=== PATIENT | male | born 1970 | race Caucasian/White ===

== ENCOUNTER 2018-01-22 09:57 | Inpatient (IN) | payer SELFPAY ==
[~2018-01-22] VITALS: Ht 162.6 cm; Wt 60.1 kg
[2018-01-22] VITALS (14 sets, daily range): BP systolic 70–144; BP diastolic 31–116; PULSE 73–88; RESP 14–26; TEMP 98.3–98.4; O2SAT 97–100
[2018-01-22] MEDS ORDERED: SULFAMETHOXAZOLE-TRIMETHOPRIM DS 800-160 MG TAB PO ONE (10:30)
[2018-01-22] MEDS ORDERED: KETOROLAC TROMETHAMINE 60 MG/2 ML (IM) VIAL IM ONE (10:30)
--- NOTE | 2018-01-22 10:34 | PD ---
HPI Chief Complaint: Injury Time Seen by Provider: 10:13 Travel History International Travel<30 days: No Contact w/Intl Traveler<30days: No Traveled to known affect area: No History of Present Illness HPI 47yo M with no significant PMH presents to the ED with c/o right forearm pain for 1 month. Said he was working at [employer] and slipped and hit his right forearm on a rock 1 month ago. [place] Said it was more swollen before and has drained pus on its own. Said last drainage was 3 days ago. Denies any fever, chest pain, sob, n/v, abdominal pain, focal weakness or numbness. Up to date on tetanus. PFSH Past Medical History Hx Anticoagulant Therapy: No Cardiovascular Problems: No Chemotherapy: No Cerebrovascular Accident: No Diabetes: No Respiratory: No Social History Alcohol Use: Yes Tobacco Use: Yes Substance Use: Yes (marijuana) Allergies-Medications (Allergen,Severity, Reaction): Coded Allergies: penicillin G (Unverified Allergy, Unknown, 01/22/18) Reported Meds & Prescriptions Reported Meds & Active Scripts Active Tylenol (Acetaminophen) 325 Mg Tab 650 Mg PO Q6H PRN Bactrim DS (Sulfamethoxazole-Trimethoprim) 800-160 Mg Tab 1 Tab PO BID Review of Systems Except as stated in HPI: all other systems reviewed are Neg Physical Exam Narrative GEN: 47yo M not in distress. SKIN: Warm and dry. HEAD: Normocephalic, atraumatic. EYE: Pupils reactive and equal. EOMI. CV: S1, S2. Lungs: CTA B/L, equal breath sounds. Abd: soft, NT/ND. Ext: RUE: +Radial pulse. +Scab in midforearm with mild immediately surrounding erythema. No fluctuance. There is a small soft tissue swelling that is skin color neck to the scab. Some ttp mid ulna. Right elbow: FROM. Sensation intact. Right wrist: FROM. Neuro: CNII-XII grossly intact. Muscle strength 5/5 in all extremities. Sensation intact and equal bilaterally. Data Data Last Documented VS Vital Signs Date Time Temp Pulse Resp B/P (MAP) Pulse Ox O2 Delivery O2 Flow Rate FiO2 01/22/18 14:08 82 18 74/52 (59) 100 Room Air 01/22/18 10:01 98.3 Orders Orders Forearm (2vws) (01/22/18 ) Sulfamet-Trimeth Ds 800-160 Mg (Bactrim (01/22/18 10:30) Ketorolac Inj (Toradol Inj) (01/22/18 10:30) Ed Poc Ultrasound (01/22/18 ) Electrocardiogram (01/22/18 12:21) Complete Blood Count With Diff (01/22/18 12:21) Comprehensive Metabolic Panel (01/22/18 12:21) Magnesium (Mg) (01/22/18 12:21) Act Partial Throm Time (Ptt) (01/22/18 12:21) Prothrombin Time / Inr (Pt) (01/22/18 12:21) Ct Brain W/O Iv Contrast(Rout) (01/22/18 12:21) Sodium Chlor 0.9% 1000 Ml Inj (Ns 1000 M (01/22/18 12:21) Orthostatic Vital Signs (01/22/18 12:21) Thyroid Stimulating Hormone (01/22/18 12:23) Chest, Single Ap (01/22/18 ) Sodium Chlor 0.9% 1000 Ml Inj (Ns 1000 M (01/22/18 13:15) Blood Culture (01/22/18 13:49) Lactic Acid Sepsis Protocol (01/22/18 13:49) Vancomycin Inj (Vancomycin Inj) (01/22/18 14:00) Aztreonam Inj (Azactam Inj) (01/22/18 14:00) Sodium Chlor 0.9% 1000 Ml Inj (Ns 1000 M (01/22/18 14:00) Ct Abd/Pel W/O Iv Contrast (01/22/18 14:58) Norepinephrine-Dextrose Drip (Levophed-D (01/22/18 16:00) Terbutaline Inj (Brethine Inj) (01/22/18 15:00) Ct Forearm W/O Iv Contrast (01/22/18 ) Admit Order (Ed Use Only) (01/22/18 15:18) Labs Laboratory Tests Test 01/22/18 13:00 01/22/18 14:04 White Blood Count 42.3 TH/MM3 Red Blood Count 4.35 MIL/MM3 Hemoglobin 13.0 GM/DL Hematocrit 38.8 % Mean Corpuscular Volume 89.2 FL Mean Corpuscular Hemoglobin 29.9 PG Mean Corpuscular Hemoglobin Concent 33.5 % Red Cell Distribution Width 12.6 % Platelet Count 205 TH/MM3 Mean Platelet Volume 7.5 FL Neutrophils (%) (Auto) 95.2 % Lymphocytes (%) (Auto) 1.2 % Monocytes (%) (Auto) 3.5 % Eosinophils (%) (Auto) 0.0 % Basophils (%) (Auto) 0.1 % Neutrophils # (Auto) 40.3 TH/MM3 Lymphocytes # (Auto) 0.5 TH/MM3 Monocytes # (Auto) 1.5 TH/MM3 Eosinophils # (Auto) 0.0 TH/MM3 Basophils # (Auto) 0.0 TH/MM3 CBC Comment AUTO DIFF Differential Total Cells Counted 100 Neutrophils % (Manual) 65 % Band Neutrophils % 19 % Lymphocytes % 2 % Monocytes % 3 % Neutrophils # (Manual) 40.2 TH/MM3 Metamyelocytes 9 % Myelocytes 2 % Differential Comment FINAL DIFF MANUAL Toxic Granulation 1+ Platelet Estimate NORMAL Platelet Morphology Comment NORMAL Prothrombin Time 15.1 SEC Prothromb Time International Ratio 1.5 RATIO Activated Partial Thromboplast Time 34.8 SEC Blood Urea Nitrogen 33 MG/DL Creatinine 1.65 MG/DL Random Glucose 118 MG/DL Total Protein 6.3 GM/DL Albumin 3.0 GM/DL Calcium Level 8.5 MG/DL Magnesium Level 1.9 MG/DL Alkaline Phosphatase 133 U/L Aspartate Amino Transf (AST/SGOT) 58 U/L Alanine Aminotransferase (ALT/SGPT) 62 U/L Total Bilirubin 0.5 MG/DL Sodium Level 130 MEQ/L Potassium Level 4.7 MEQ/L Chloride Level 98 MEQ/L Carbon Dioxide Level 27.0 MEQ/L Anion Gap 5 MEQ/L Estimat Glomerular Filtration Rate 45 ML/MIN Thyroxine (T4) 8.1 MCG/DL Thyroid Stimulating Hormone 3rd Gen 0.327 uIU/ML Lactic Acid Level 3.2 mmol/L [facility] Medical Decision Making Medical Screen Exam Complete: Yes Emergency Medical Condition: Yes Interpretation(s) EKG: NSR 82bpm. Normal axis. Early repolarization. Normal voltage. Differential Diagnosis Abscess that has already drained vs. cellulitis vs. fracture vs. contusion Narrative Course 47yo here initially with right forearm pain s/p fall onto a rock 1 month ago. Pt said it was much more swollen before and had pus draining from the wound. There is currently no fluctuance around the scab and there is very localized erythema around the wound. Tetanus is up to date and pt has no systemic symptoms. BP is elevated and pt has no history of HTN so will recheck after pain medication. Pt given toradol and bactrim. Will obtain xray right forearm since pt had trauma and persistent pain. Xray of right forearm showed no bony injury. Pt reevaluated at bedside and feels better. Pt initially came for evaluation of right arm pain. However, his niece said he is sleeping more often than normal. Pt said he has been feeling lightheaded and wobbly when he walks for 2 days. Denies any fever, chest pain, sob, n/v, abdominal pain, focal weakness or numbness. Denies any trauma except for fall onto right forearm. Repeat BP is low at 70/31. Repeat BP in bilateral arms and with manual is the same. Pt given NS IVF 1 liter and BP improved to 81/49. Further workup has been ordered. Labs reviewed, leukocytosis at 42.3. 95.2% neutrophil. TSH low, will obtain T4. Mild hyponatremia at 130. BUN/ creatinine elevated at 33/1.65. This is new from prior. Elevated alk phos and AST. No abdominal pain. CT brain negative. CXR negative. Pt empirically cover with vancomycin and aztreonam. Pt's blood pressure remained low after 3 liters of NS IVF. Pt has bilateral 20gauge IV and good peripheral access and another IV added. Norepinephrine drip ordered. Lactic acid is elevated at 3.2. Pt reevaluated at bedside and has some upper abdominal pain on reevaluation. Said it does not hurt if I dont press on it but hurts a little now that I press on it. I discussed with exhaust and muffler fitter Dr. Hanley and he requested adding CT forearm. He also asked if patient had neck stiffness. 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 He did have headache that started 3 days ago although he appears well for bacterial meningitis. I offered lumbar puncture to check CSF but pt refused. Said he does not think that's the problem. Said headache has improved. Accepted to Dr. Hanley's service. Critical Care Narrative Aggregate critical care time was 50 minutes. Time to perform other separately billable procedures was not included in the critical care time. My time did not include minutes spent treating any other patients simultaneously or on activities that did not directly contribute to the patient's treatment. The services I provided to this patient were to treat and/or prevent clinically significant deterioration that could result in: cardiovascular collapse or . I provided critical care services requiring my management, as noted below: Chart data review, documentation time, medication orders and management, vital sign assessments/reviewing monitor data, ordering and reviewing lab tests, ordering and interpreting/reviewing x-rays and diagnostic studies, care of the patient and discussion of the patient with the admitting physicians. Procedures Procedure Narrative Soft tissue ultrasound: Linear probe was use in transverse and sagittal view over area of interest and shows no abscess. Sepsis Criteria SIRS Criteria (2 or more): WBC > 83625, < 4000 or > 10% bands Severe Sepsis (+one): Lactate >2 Septic Shock Criteria: Unresponsive to 30ml/kg fluid bolus Diagnosis Primary Impression: Septic shock Admitting Information Admitting Physician Requests: Admit Additional Instructions: Please follow up with [facility] in 2-3 days. Return tot he ED if symptoms worsen. Scripts Acetaminophen (Tylenol) 325 Mg Tab 650 MG PO Q6H Y for PAIN SCALE 1 TO 4, #20 TAB 0 Refills Prov: Rosina Godwin DO 01/22/18 Sulfamethoxazole-Trimethoprim (Bactrim DS) 800-160 Mg Tab 1 TAB PO BID for Infection, #14 TAB 0 Refills Prov: Rosina Godwin DO 01/22/18 Rosina Godwin DO Jan 22, 2018 10:34
--- NOTE | 2018-01-22 11:39 | RADRPT ---
EXAM DATE/TIME: 01/22/2018 11:09 [facility] COMPARISON: No previous studies available for comparison. INDICATIONS : Patient fell onto rocks 1 month ago- Infection and swelling in arm. MEDICAL HISTORY : None. SURGICAL HISTORY : None. ENCOUNTER: Initial ACUITY: 1 month PAIN SCORE: 6/10 LOCATION: Right Forearm. FINDINGS: Two view examination of the right forearm demonstrates no evidence of fracture or dislocation. Bony mineralization is normal. The soft tissue structures are intact. Air is not seen in the soft tissues . CONCLUSION: No bony injury is seen. Talon Prasad MD on January 22, 2018 at 11:36 Board Certified Radiologist. This report was verified electronically.
[2018-01-22] MEDS ORDERED: TYLE325T PO (12:15)
[2018-01-22] MEDS ORDERED: BACT800T5 PO (12:15)
[2018-01-22] MEDS ORDERED: SODIUM CHLOR 0.9% 1000 ML INJ 1,000 ML IV ONE ×5 (12:21→16:15)
[2018-01-22 13:23] LABS: AUTOMATED NEUTROPHIL # 40.3 TH/MM3 (1.8-7.7); BASOPHIL % 0.1 % (0.0-2.0); HEMATOCRIT 38.8 % (39.0-51.0); LYMPH % 1.2 % (9.0-44.0); LYMPHOCYTE # 0.5 TH/MM3 (1.0-4.8); MEAN CELL VOLUME 89.2 FL (80.0-100.0); MEAN CORPUSCULAR HEMOGLOBIN 29.9 PG (27.0-34.0); MEAN CORPUSCULAR HGB CONC 33.5 % (32.0-36.0); MEAN PLATELET VOLUME 7.5 FL (7.0-11.0); MONO % 3.5 % (0.0-8.0); MONOCYTE # 1.5 TH/MM3 (0-0.9); NEUT % 95.2 % (16.0-70.0); PLATELET COUNT 205 TH/MM3 (150-450); RED BLOOD COUNT 4.35 MIL/MM3 (4.50-5.90); RED CELL DISTRIBUTION WIDTH 12.6 % (11.6-17.2); WHITE BLOOD COUNT 42.3 TH/MM3 (4.0-11.0)
--- NOTE | 2018-01-22 13:24 | RADRPT ---
EXAM DATE/TIME: 01/22/2018 13:17 [facility] COMPARISON: No previous studies available for comparison. INDICATIONS : Dizziness. RADIATION DOSE: 56.35 CTDIvol (mGy) MEDICAL HISTORY : None SURGICAL HISTORY : None. ENCOUNTER: Initial ACUITY: 1 day PAIN SCALE: 0/10 LOCATION: cranial TECHNIQUE: Multiple contiguous axial images were obtained of the head. Using automated exposure control and adj ustment of the mA and/or kV according to patient size, radiation dose was kept as low as reasonably a chievable to obtain optimal diagnostic quality images. DICOM format image data is available electro nically for review and comparison. FINDINGS: CEREBRUM: The ventricles are normal for age. No evidence of midline shift, mass lesion, hemorrhage or acute in farction. No extra-axial fluid collections are seen. POSTERIOR FOSSA: The cerebellum and brainstem are intact. The 4th ventricle is midline. The cerebellopontine angle i s unremarkable. EXTRACRANIAL: The visualized portion of the orbits is intact. SKULL: The calvaria is intact. No evidence of skull fracture. CONCLUSION: Normal examination. Talon Prasad MD on January 22, 2018 at 13:22 Board Certified Radiologist. This report was verified electronically.
[2018-01-22 13:34] LABS: INTERNATIONAL NORMALIZED RATIO 1.5 RATIO; PROTHROMBIN TIME - PATIENT 15.1 SEC (9.8-11.6)
[2018-01-22 13:44] LABS: AST (GOT) 58 U/L (15-37); BLOOD UREA NITROGEN 33 MG/DL (7-18); CALCIUM 8.5 MG/DL (8.5-10.1); CHLORIDE 98 MEQ/L (98-107); CREATININE 1.65 MG/DL (0.60-1.30); GLOMERULAR FILTRATION RATE 45 ML/MIN (>89); GLUCOSE,RANDOM 118 MG/DL (74-106); MAGNESIUM 1.9 MG/DL (1.5-2.5); SODIUM (NA) 130 MEQ/L (136-145)
[2018-01-22 13:45] LABS: ALT (GPT) 62 U/L (12-78)
[2018-01-22 13:47] LABS: ALKALINE PHOSPHATASE 133 U/L (45-117); TOTAL BILIRUBIN ADULT 0.5 MG/DL (0.2-1.0); TOTAL PROTEIN 6.3 GM/DL (6.4-8.2)
--- NOTE | 2018-01-22 13:49 | RADRPT ---
EXAM DATE/TIME: 01/22/2018 13:28 [facility] COMPARISON: No previous studies available for comparison. INDICATIONS : Cough MEDICAL HISTORY : None. SURGICAL HISTORY : None. ENCOUNTER: Initial ACUITY: 1 day PAIN SCORE: 0/10 LOCATION: chest FINDINGS: A single view of the chest demonstrates the lungs to be symmetrically aerated without evidence of mas s, infiltrate or effusion. The cardiomediastinal contours are unremarkable. Osseous structures are intact. CONCLUSION: Normal examination. Talon Prasad MD on January 22, 2018 at 13:47 Board Certified Radiologist. This report was verified electronically.
[2018-01-22] MEDS ORDERED: VANCOMYCIN INJ 900 MG in SODIUM CHLOR 0.9% 250 ML INJ 250 ML IV ONE (14:00)
[2018-01-22] MEDS ORDERED: AZTREONAM INJ 2,000 MG in SODIUM CHLORIDE 0.9% INJ 100 ML IV ONE (14:00)
[2018-01-22 14:26] LABS: BANDS 19 % (0-6); LYMPHOCYTES 2 % (9-44); METAMYELOCYTES 9 % (0-1); MONOCYTES 3 % (0-8); MYELOCYTES 2 % (0-0); NEUTROPHIL # MANUAL DIFF 40.2 TH/MM3 (1.8-7.7); POLYS (SEG NEUTROPHILS) 65 % (16-70); TOXIC GRANULATION 1+ (NORMAL)
[2018-01-22 14:43] LABS: LACTIC ACID SEPSIS PROTOCOL 3.2 mmol/L (0.4-2.0)
[2018-01-22] MEDS ORDERED: TERBUTALINE INJ 1 MG/ML AMP SQ PRN ×2 (15:00→15:15)
[2018-01-22] MEDS ORDERED: MISCELLANEOUS NURSING INFORMATION XX SCH (15:15)
[2018-01-22] MEDS ORDERED: SODIUM CHLORIDE 0.9% FLUSH 10 ML FLUSH IV FLUSH PRN (15:15)
[2018-01-22] MEDS ORDERED: NOREPINEPHRINE INJ 4 MG in SODIUM CHLOR 0.9% 250 ML INJ 246 ML IV PRN (15:15)
[2018-01-22] MEDS ORDERED: RESP: ALBUTEROL 2.5 MG/IPRATROPIUM 0.5 MG NEB (PRN) INH (15:15)
[2018-01-22] MEDS ORDERED: CHLORHEXIDINE GLUCONATE 2 % 1 PACK (2 CLOTHS) TOP PRN (15:15)
[2018-01-22] MEDS ORDERED: Vancomycin Consult Pharmacy 1 EA OTHER SCH (15:30)
[2018-01-22] MEDS: SODIUM CHLOR 0.9% 1000 ML INJ 1,000 ML IV SCH ×2 (15:45→20:07)
[2018-01-22] MEDS ORDERED: NOREPINEPHRINE-DEXTROSE DRIP 250 ML IV PRN (16:00)
[2018-01-22] MEDS: ENOXAPARIN SODIUM 40 MG/0.4 ML SYRINGE SQ SCH (16:03)
[2018-01-22] MEDS: metroNIDAZOLE 500 MG INJ 100 ML IV SCH ×2 (16:03→23:14)
[2018-01-22] MEDS: AZTREONAM INJ 2,000 MG in SODIUM CHLORIDE 0.9% INJ 100 ML IV SCH (16:22)
--- NOTE | 2018-01-22 16:27 | HHI.HP ---
HPI Service Critical Care Medicine Primary Care Physician No Primary Care Physician Admission Diagnosis Septic shock Diagnosis: (1) Septic shock Diagnosis: Principal (2) Probable infective endocarditis Diagnosis: Principal (3) Acute kidney failure Diagnosis: Principal (4) Hyponatremia Diagnosis: Principal (5) Lactic acidosis Diagnosis: Principal (6) IVDU (intravenous drug user) Diagnosis: Secondary Chief Complaint: Probable sepsis Travel History International Travel<30 Days: No Contact w/Intl Traveler <30 Da: No Traveled to Known Affected Are: No Sepsis Criteria SIRS Criteria (2 or more): RR > 20 or PaCO2 < 32, WBC > 68875, < 4000 or > 10 % bands Sepsis Criteria (SIRS+source): Infect source susp/known Severe Sepsis (+one): Lactate >2, Acute Oliguria/Renal Failure Criteria Outcome: Meets septic shock criteria History of Present Illness Patient is a 47-year-old male with no significant past medical history who presented to the emergency department thinking that he is developing sepsis from a wound on the right forearm dorsum. Apparently he fell on a rock about a month ago at that time had wound infection currently there is a scab at the site of wound with some swelling around it but no fluctuation. Initially normotensive but developed hypotension in the ER, BP 70/31. After 3 L of normal saline boluses patient's blood pressure remained low at high 70 to low 80s systolic. Labs showed leukocytosis at 42.3 with 19% bands, Na130. BUN/ creatinine elevated at 33/1.65. Lactic acid is elevated at 3.2. Received vancomycin and aztreonam. Due to persistent hypotension after 3 L normal saline boluses, norepinephrine drip ordered and critical care medicine was consulted for admission due to septic shock. On my evaluation in the ED patient is hypotensive appears ill. On further interview he had admits to IV drug use with cocaine last injection was 3 days ago. He had been doing IV drugs on and off for approximately 10 years. Denies history of endocarditis. Bedside echo performed by me did not show any large vegetation, formal echo is pending at this time. Due to right upper quadrant tenderness a CT of the abdomen and pelvis is ordered we also will get a CT of the forearm to rule out any abscess less likely. Review of Systems ROS Limitations: Other (as per HPI) Past Family Social History Allergies: Coded Allergies: penicillin G (Unverified Allergy, Unknown, 01/22/18) Past Medical History IV drug use with cocaine Tobacco use Past Surgical History No surgical history Reported Medications Takes no medications Active Ordered Medications Reviewed Family History Mother had hypertension and diabetes Social History Smokes about a packs of cigarettes daily On and off IV cocaine use since last 10 years Denies alcohol use Physical Exam Vital Signs Vital Signs Date Time Temp Pulse Resp B/P (MAP) Pulse Ox O2 Delivery O2 Flow Rate FiO2 01/22/18 16:12 84 18 80/52 (61) 97 Nasal Cannula 2.00 01/22/18 16:10 84 18 83/52 (62) 97 Nasal Cannula 2.00 01/22/18 16:00 80 18 77/53 (61) 100 Nasal Cannula 01/22/18 15:46 80 18 84/52 (63) 97 Nasal Cannula 2.00 01/22/18 15:35 80 18 81/54 (63) 97 Nasal Cannula 2.00 01/22/18 15:29 84 18 83/56 (65) 97 Nasal Cannula 2.00 01/22/18 15:22 83 75/52 01/22/18 14:08 82 18 74/52 (59) 100 Room Air 01/22/18 13:11 87 18 81/49 (60) 99 01/22/18 12:33 82 18 75/43 (54) 88 18 77/49 (58) 01/22/18 12:15 84 18 70/31 (44) 97 Room Air 01/22/18 10:37 18 99 Room Air 01/22/18 10:01 98.3 88 14 144/116 (125) 100 Room Air Physical Exam GEN: 47-year-old male who appears ill hypotensive systolic blood pressure 75-80 SKIN: Warm and dry. Pale HEAD: Normocephalic, atraumatic. EYE: Pupils reactive and equal. EOMI. CV: S1, S2. Normal no murmurs. Bedside echo no large vegetations, normal EF Lungs: Chest clear to auscultation Abd: soft, tender to palpation right upper quadrant. Voluntary guarding in the right upper quadrant Ext: Scab in the dorsum midforearm with mild surrounding erythema, swelling but no no fluctuance. Neuro: Alert awake oriented 3. Sensation is grossly intact. No focal deficits Laboratory Laboratory Tests Test 01/22/18 13:00 01/22/18 14:04 White Blood Count 42.3 Red Blood Count 4.35 Hemoglobin 13.0 Hematocrit 38.8 Mean Corpuscular Volume 89.2 Mean Corpuscular Hemoglobin 29.9 Mean Corpuscular Hemoglobin Concent 33.5 Red Cell Distribution Width 12.6 Platelet Count 205 Mean Platelet Volume 7.5 Neutrophils (%) (Auto) 95.2 Lymphocytes (%) (Auto) 1.2 Monocytes (%) (Auto) 3.5 Eosinophils (%) (Auto) 0.0 Basophils (%) (Auto) 0.1 Neutrophils # (Auto) 40.3 Lymphocytes # (Auto) 0.5 Monocytes # (Auto) 1.5 Eosinophils # (Auto) 0.0 Basophils # (Auto) 0.0 CBC Comment AUTO DIFF Differential Total Cells Counted 100 Neutrophils % (Manual) 65 Band Neutrophils % 19 Lymphocytes % 2 Monocytes % 3 Neutrophils # (Manual) 40.2 Metamyelocytes 9 Myelocytes 2 Differential Comment FINAL DIFF MANUAL Toxic Granulation 1+ Platelet Estimate NORMAL Platelet Morphology Comment NORMAL Prothrombin Time 15.1 Prothromb Time International Ratio 1.5 Activated Partial Thromboplast Time 34.8 Blood Urea Nitrogen 33 Creatinine 1.65 Random Glucose 118 Total Protein 6.3 Albumin 3.0 Calcium Level 8.5 Magnesium Level 1.9 Alkaline Phosphatase 133 Aspartate Amino Transf (AST/SGOT) 58 Alanine Aminotransferase (ALT/SGPT) 62 Total Bilirubin 0.5 Sodium Level 130 Potassium Level 4.7 Chloride Level 98 Carbon Dioxide Level 27.0 Anion Gap 5 Estimat Glomerular Filtration Rate 45 Thyroid Stimulating Hormone 3rd Gen 0.327 Lactic Acid Level 3.2 Date/Time Source Procedure Growth Status 01/22/18 14:05 Blood Peripheral Aerobic Blood Culture Pending Received 01/22/18 14:05 Blood Peripheral Anaerobic Blood Culture Pending Received 01/22/18 15:36 Urine Clean Catch Urine Culture Pending Received Result Diagram: 01/22/18 1300 01/22/[address] of the head, chest x-ray, x-ray of the right forearm unremarkable Septic Shock Reassessment Septic shock perfusion: reassessment completed Caprini VTE Risk Assessment Caprini VTE Risk Assessment: Mod/High Risk (score >= 2) Caprini Risk Assessment Model Point Value = 1 Point Value = 2 Point Value = 3 Point Value = 5 Age 41-60 Minor surgery BMI > 25 kg/m2 Swollen legs Varicose veins or History of unexplained or recurrent spontaneous Oral contraceptives or hormone replacement Sepsis (< 1 month) Serious lung disease, including pneumonia (< 1 month) Abnormal pulmonary function Acute myocardial infarction Congestive heart failure (< 1 month) History of inflammatory bowel disease Medical patient at bed rest Age 61-74 Arthroscopic surgery Major open surgery (> 45 min) Laparoscopic surgery (> 45 min) Malignancy Confined to bed (> 72 hours) Immobilizing plaster cast Central venous access Age >= 75 History of VTE Family history of VTE Factor V Leiden Prothrombin [id number] Lupus anticoagulant Anticardiolipin antibodies Elevated serum homocysteine Heparin-induced thrombocytopenia Other congenital or acquired thrombophilia Stroke (< 1 month) Elective arthroplasty Hip, pelvis, or leg fracture Acute spinal cord injury (< 1 month) Prophylaxis Regimen Total Risk Factor Score Risk Level Prophylaxis Regimen 0-1 Low Early ambulation 2 Moderate Order ONE of the following: *Sequential Compression Device (SCD) *Heparin 5000 units SQ BID 3-4 Higher Order ONE of the following medications: *Heparin 5000 units SQ TID *Enoxaparin/Lovenox 40 mg SQ daily (WT < 150 kg, CrCl > 30 mL/min) *Enoxaparin/Lovenox 30 mg SQ daily (WT < 150 kg, CrCl > 10-29 mL/min) *Enoxaparin/Lovenox 30 mg SQ BID (WT < 150 kg, CrCl > 30 mL/min) AND/OR *Sequential Compression Device (SCD) 5 or more Highest Order ONE of the following medications: *Heparin 5000 units SQ TID (Preferred with Epidurals) *Enoxaparin/Lovenox 40 mg SQ daily (WT < 150 kg, CrCl > 30 mL/min) *Enoxaparin/Lovenox 30 mg SQ daily (WT < 150 kg, CrCl > 10-29 mL/min) *Enoxaparin/Lovenox 30 mg SQ BID (WT < 150 kg, CrCl > 30 mL/min) AND *Sequential Compression Device (SCD) Assessment and Plan Assessment and Plan NEURO: IVDU Cocaine abuse -Use Ativan for anxiety, withdrawal RESP: -Nasal cannula oxygen -DuoNeb every 6 hours as needed -CT of the chest to evaluate for infiltrate, septic emboli CV: Septic shock Lactic acidosis Probable infective endocarditis -Normal saline IV fluids given 3L in ED -Give additional 2 L normal saline bolus and maintenance IV fluid at 1 50 mL/h -Levophed to keep map above 65, -2d echo, serial troponin -Bedside echo did not show large vegetations, normal ejection fraction, formal echo pending GI: RUQ pain -CT abdomen pelvis -Regular diet if CT abdomen negative, IV Famotine -Hepatitis profile : Acute kidney injury Dehydration -IV hydration as above monitor renal function closely. -Strict intake output ID: Septic shock Probable infective endocarditis -Send blood culture urine culture -Continue vancomycin, Azactam and Flagyl -Infectious disease consult, 2D echo HEME: -Monitor CBC, CMP ENDO: -Electrolyte replacement per protocol PROPH: -Bilateral lower extremity SCDs. Lovenox/famotidine LINES: -Utilize peripheral IVs, central line if continued Levophed requirement CC time 45 min excluding procedural time Code Status Full Discussed Condition With D/W Dr. Godwin and the patient Henry Hanley MD Jan 22, 2018 16:27
--- NOTE | 2018-01-22 17:08 | EKG ---
Date Performed: 01/22/2018 Time Performed: 12:38:20 PTAGE: 47 years EKG: Sinus rhythm EARLY REPOLARIZATION BORDERLINE ECG NO PREVIOUS TRACING DOCTOR: Vel Kraus Interpretating Date/Time 01/22/2018 17:07:07
--- NOTE | 2018-01-22 17:49 | PD.PROCEDR ---
Central Line Procedure REASON FOR PROCEDURE Central venous access PROCEDURE PERFORMED Central line placement: US guided central line placement CONSENT Informed consent for procedure was obtained from patient. The risks and benefits of the procedure were discussed to include but limited to bleeding, clot formation, infection, and even . ANESTHESIA Local injection of 1% Lidocaine DESCRIPTION OF THE PROCEDURE The patient was placed in supine, mild Trendelenburg position. The area was exposed and cleansed with ChloraPrep, times two. Large sterile drape was used to cover the patient, with the site exposed, under sterile conditions including cap, face mask, sterile gown, and sterile gloves. On single attempt, the introducer needle was inserted with negative pressure in syringe and venous flash was obtained. The guide wire was then advanced without any restriction and the needle was removed. The dilator was used without any complications. Using Seldinger technique the 20 CM 7F triple lumen catheter was advanced over the guide wire to a depth of 18 centimeters. The guide wire was removed. All ports were aspirated with dark venous blood return and flushed easily with sterile saline. All ports were capped. Antibiotic disc was placed around central line at puncture site. The central line was secured to the skin with two interrupted 2.0 silk sutures. The area was bandaged with sterile see- through central line bandage. RADIOLOGICAL DATA Ultrasound guidance was used to locate [facility] central line. Doppler/color flow was used to confirm venous flow. COMPLICATIONS: No apparent complications ESTIMATED BLOOD LOSS: Less than 1 cc. Henry Hanley MD Jan 22, 2018 17:49
--- NOTE | 2018-01-22 17:50 | RADRPT ---
EXAM DATE/TIME: 01/22/2018 16:59 [facility] COMPARISON: No previous studies available for comparison. INDICATIONS : Right upper quadrant pain. Elevated white blood count. ORAL CONTRAST: No oral contrast ingested. RADIATION DOSE: 5.10 CTDIvol (mGy) ; Combined studies - Thorax/Abdomen/Pelvis MEDICAL HISTORY : IVDA SURGICAL HISTORY : None. ENCOUNTER: Initial ACUITY: 1 day PAIN SCALE: 4/10 LOCATION: Right upper quadrant TECHNIQUE: Volumetric scanning of the abdomen and pelvis was performed. Using automated exposure control and ad justment of the mA and/or kV according to patient size, radiation dose was kept as low as reasonably achievable to obtain optimal diagnostic quality images. DICOM format image data is available electro nically for review and comparison. FINDINGS: LOWER LUNGS: Please refer to chest CT report for description of the supradiaphragmatic findings. LIVER: Homogeneous density without lesion. There is no dilation of the biliary tree. No calcified gallston es. SPLEEN: Normal size without lesion. PANCREAS: Within normal limits. KIDNEYS: Normal in size and shape. There is no mass, stone, or hydronephrosis. ADRENAL GLANDS: Within normal limits. VASCULAR: There is no aortic aneurysm. BOWEL/MESENTERY: The stomach, small bowel, and colon demonstrate no acute abnormality. There is no free intraperitone al air. There is trace free fluid within the pelvis. ABDOMINAL WALL: Within normal limits. RETROPERITONEUM: There is no lymphadenopathy. BLADDER: No wall thickening or mass. REPRODUCTIVE: Within normal limits. INGUINAL: There is no lymphadenopathy or hernia. MUSCULOSKELETAL: No acute osseous abnormality is identified. CONCLUSION: 1. There is trace free fluid in the pelvis from uncertain etiology. No free air is seen. 2. There is a small amount of air within the right rectus abdominis muscle inferiorly. However, no ma ss, fluid collection, or asymmetric size is appreciated in this area. Etiology is uncertain. Suggest correlation for any recent injections in this area. 3. Please refer to chest CT report for description of the supradiaphragmatic findings. Talon Freire MD on January 22, 2018 at 17:43 Board Certified Radiologist. This report was verified electronically.
--- NOTE | 2018-01-22 18:06 | RADRPT ---
EXAM DATE/TIME: 01/22/2018 16:59 [facility] COMPARISON: No previous studies available for comparison. INDICATIONS : Elevated white blood count. Evaluate for septic emboli. RADIATION DOSE: 5.10 CTDIvol (mGy) ; Combined studies - Thorax/Abdomen/Pelvis MEDICAL HISTORY : IVDA SURGICAL HISTORY : None. ENCOUNTER: Initial ACUITY: 1 day PAIN SCALE: 0/10 LOCATION: chest TECHNIQUE: Volumetric scanning of the chest was performed. Using automated exposure control and adjustment of t he mA and/or kV according to patient size, radiation dose was kept as low as reasonably achievable to obtain optimal diagnostic quality images. DICOM format image data is available electronically for r eview and comparison. Follow-up recommendations for detected pulmonary nodules are based at a minimum on nodule size and pa tient risk factors according to Fleischner Society Guidelines. FINDINGS: LUNGS: There is dependent atelectasis bilaterally and posteriorly at the lung bases. Mild smooth septal thic kening is present in the upper lung zones bilaterally. No pneumothorax is present. No concerning pulm onary nodule is identified. PLEURAE: There is no pleural thickening or pleural effusion. MEDIASTINUM: The heart and great vessels demonstrate no acute abnormality. There is no mediastinal or hilar lymph adenopathy. AXILLAE: Within normal limits. No lymphadenopathy. MUSCULOSKELETAL: There are mild degenerative changes of the thoracic spine. MISCELLANEOUS: Please refer to abdomen and pelvis CT report for description of the subdiaphragmatic findings. CONCLUSION: 1. There are no imaging findings to indicate septic emboli. There is atelectasis at both lung bases. 2. There is mild smooth septal thickening in the upper lung zones bilaterally which can be seen as ea rly changes of interstitial pulmonary edema. Talon Freire MD on January 22, 2018 at 18:01 Board Certified Radiologist. This report was verified electronically.
--- NOTE | 2018-01-22 18:10 | RADRPT ---
EXAM DATE/TIME: 01/22/2018 17:06 [facility] COMPARISON: FOREARM RIGHT (2VWS), January 22, 2018, 11:09. INDICATIONS : Right arm swelling. Fell on arm 1 month ago. RADIATION DOSE: 24.18 CTDIvol (mGy) MEDICAL HISTORY : IVDA SURGICAL HISTORY : None. ENCOUNTER: Initial ACUITY: 1 month PAIN SCALE: 3/10 LOCATION: Right forearm TECHNIQUE: Volumetric scanning of the forearm was performed. Using automated exposure control and adjustment of the mA and/or kV according to patient size, radiation dose was kept as low as reasonably achievable to obtain optimal diagnostic quality images. DICOM format image data is available electronically for review and comparison. FINDINGS: BONES: No evidence of fracture. Alignment is within normal limits. SOFT TISSUES: Muscles, tendons, and neurovascular structures are grossly unremarkable. However, the soft tissues ar e not overall well-visualized without contrast. There is mild focal soft tissue swelling along the ul yue aspect of the mid forearm. There is some type of mildly high density linear material in the subcu taneous tissues. CONCLUSION: 1. No acute osseous abnormality is identified. 2. Mild focal soft tissue swelling along the ulnar aspect of the midforearm. There is a linear densit y versus mineralization of soft tissues in the subcutaneous region. This is of uncertain etiology. Glez ggest correlation for any foreign body which could be in this area. Talon Freire MD on January 22, 2018 at 18:05 Board Certified Radiologist. This report was verified electronically.
--- NOTE | 2018-01-22 18:30 | RADRPT ---
EXAM DATE/TIME: 01/22/2018 17:58 [facility] COMPARISON: CHEST SINGLE AP, January 22, 2018, 13:28. INDICATIONS : Evaluate central line placement. MEDICAL HISTORY : None. SURGICAL HISTORY : None. ENCOUNTER: Initial ACUITY: 1 day PAIN SCORE: 0/10 LOCATION: Bilateral chest FINDINGS: A left-sided central line has been placed. The central line appears to be in good position. There is no evidence of pneumothorax. There appears to be an infiltrate in the right lower lung with some inte rstitial changes bilaterally. No pleural effusions. Heart size is within normal limits. The bony stru ctures are stable. CONCLUSION: 1. Left-sided central line in good position. 2. No pneumothorax. 3. Patchy infiltrate in the right lower lung along with some bilateral interstitial changes. Dmitri Atkinson MD on January 22, 2018 at 18:28 Board Certified Radiologist. This report was verified electronically.
--- NOTE | 2018-01-22 19:12 | MB ---
cc: LUIS DANIEL GELLER MD DATE OF CONSULTATION: 01/22/2018. REASON FOR CONSULTATION: Septic shock. REQUESTING PHYSICIAN: Dr. Hanley. HISTORY OF PRESENT ILLNESS: This is a 47-year-old white male who presented to the emergency department this morning complaining of right forearm pain which has been ongoing for about a month. The patient also has problems with unsteady gait and states that over the past three or four days he has been having difficulty ambulating and stumbling. He denies dizziness. He was noted to be hypotensive with blood pressure of 74/52 and white count was noted to be 42,000 and he was noted to have acute renal insufficiency with a n estimated GFR of 45. Lactic acid level was noted to be elevated at 3.2. The patient had a recent injury to his right forearm where he cut his forearm on a rock in brackish water while moving a boat. He states that he was having some clear drainage from the forearm. The injury was approximately a month ago and he states that it was healing and over the past four days he had a slight serous drainage coming from the tiny opening at the wound. There is no erythema there. The patient also has recent IV drug use. The last time was four days ago. He states that he has a slight headache. He denies nausea or vomiting. He states that he has not been taking in much liquids over the past few days. He has been mostly staying at home and noted that he has been having occasional chills. CT scan of the head shows no acute change. Chest x-ray is unremarkable. Blood culture has been obtained and the result is pending. The patient also has slightly elevated AST. PAST MEDICAL HISTORY: Unremarkable per the patient. ALLERGIES: PENICILLIN. THE PATIENT STATES HE HAD A REACTION WHILE BEING TREATED A CHILD. HIS FACE "BLEW UP". MEDICATIONS: 1. Aztreonam. 2. Metronidazole. 3. Vancomycin. 4. DuoNeb. 5. Lovenox. 6. Pepcid. SOCIAL HISTORY: The patient notes he drinks alcohol on rare occasions. Positive tobacco. Positive marijuana use. Positive IV drug use in the form of cocaine. The patient lives with his mother and his girlfriend. FAMILY HISTORY: Family history is significant for hypertension, diabetes, hypothyroidism in his mom. He notes that his grandmother has had a stroke. REVIEW OF SYSTEMS: CONSTITUTIONAL: Significant for chills. HEAD, EYES, EARS, NOSE, THROAT: The patient notes visual blurring. He also notes occasional diplopia. No nasal bleeding or discharge. No difficulty swallowing or soreness of the throat. Denies neck swelling. CARDIOVASCULAR: Denies palpitations or chest pain. RESPIRATORY: Denies cough or shortness of breath. GASTROINTESTINAL: Admits to abdominal pain. Denies diarrhea, nausea or vomiting. GENITOURINARY: Denies urgency, frequency or dysuria. Notes that his urine is dark and concentrated. ENDOCRINE: Denies polyuria or polydipsia. MUSCULOSKELETAL: Denies muscle aches or pains. INTEGUMENTARY: Denies skin rash or itching. HEMATOPOIETIC: Denies easy bruising or bleeding. NEUROLOGIC: Admits to problems with coordination and gait abnormality. PSYCHIATRIC: Denies mood changes. PHYSICAL EXAMINATION: GENERAL: This is a well-developed male who is in no acute distress. He is awake and alert and oriented. VITAL SIGNS: The vital signs include temperature of 98.3, blood pressure 83/54, heart rate 91, respirations 16. HEAD, EYES, EARS, NOSE, THROAT: Head is atraumatic. Extraocular movements grossly intact. Pupils reactive to light. No icterus. No conjunctival erythema. Oropharynx with dry mucosa. No visible lesions. NECK: The neck is supple without adenopathy or swelling. LUNGS: Decreased breath sounds. HEART: Regular S1 and S2. No audible murmurs, rubs or gallops. ABDOMEN: Bowel sounds present, mild tenderness at the right upper quadrant. No rebound. RECTAL: Not performed. EXTREMITIES: No clubbing or cyanosis or edema. SKIN: No rash. The chest and face have an erythematous hue. NEUROLOGIC: No gross focal findings. PSYCHIATRIC: The patient is calm and cooperative. LABS: WBCs 42.3, 95% neutrophils including 19% bands, hemoglobin 13.0, platelet count 205,000. Creatinine 1.65, BUN 33, AST 50, ALT 62, alkaline phosphatase 130. IMPRESSION: 1. Septic shock. The patient currently requiring Levophed. Questionable etiology. 2. Acute renal failure. 3. Leukocytosis with significant left shift. 4. IV drug use. Potential endocarditis. 5. Abdominal pain. May need to evaluate the abdomen with CT scan. RECOMMENDATION: 1. Continue the Vancomycin. 2. Continue aztreonam. 3. Continue metronidazole. 4 Monitor blood cultures. 5. Monitor urine culture. 6. Monitor renal function. 7. Monitor echocardiogram. Thank you for this consultation. I will follow the patient's progress along with you and will make further recommendations upon follow up. Luis Daniel Geller MD FD/CASSANDRA /4:39 PM /11:56 AM MTDYovani
[2018-01-22] MEDS: FAMOTIDINE 20 MG/2 ML VIAL IV PUSH SCH (20:45)
[2018-01-22] MEDS: SODIUM CHLORIDE 0.9% FLUSH 10 ML FLUSH IV FLUSH SCH (20:46)
--- NOTE | 2018-01-22 20:51 | ECHRPT ---
Indication: CONCLUSIONS Normal left ventricular size and wall thickness. The left ventricular systolic function estimated ej ection fraction is 50%. No definite regional wall motion abnormalities. Trace mitral valve regurgitation. BP: / HR: Rhythm: MEASUREMENTS (Male / Female) Normal Values Technical Quality:Good 2D ECHO LV Diastolic Diameter PLAX 4.0 cm 4.2 - 5.9 / 3.9 - 5.3 cm LV Systolic Diameter PLAX 3.3 cm IVS Diastolic Thickness 0.9 cm 0.6 - 1.0 / 0.6 - 0.9 cm LVPW Diastolic Thickness 1.0 cm 0.6 - 1.0 / 0.6 - 0.9 cm LV Relative Wall Thickness 0.5 RV Internal Dim ED PLAX 1.9 cm M-MODE Aortic Root Diameter MM 3.2 cm LA Systolic Diameter MM 3.6 cm LA Ao Ratio MM 1.1 AV Cusp Separation MM 2.2 cm FINDINGS LEFT VENTRICLE Normal left ventricular size and wall thickness. The left ventricular systolic function estimated ej ection fraction is 50%. No definite regional wall motion abnormalities. RIGHT VENTRICLE Normal right ventricular size and systolic function. LEFT ATRIUM The left atrial size is normal. RIGHT ATRIUM The right atrial size is normal. ATRIAL SEPTUM Normal atrial septal thickness without atrial level shunting by limited color doppler interrogation. AORTA The aortic root and proximal ascending aorta are not well visualized. MITRAL VALVE Structurally normal mitral valve. Trace mitral valve regurgitation. AORTIC VALVE Trileaflet aortic valve. No aortic valve stenosis or regurgitation. TRICUSPID VALVE Structurally normal tricuspid valve. No tricuspid valve stenosis or regurgitation. PULMONARY VALVE No pulmonary valve regurgitation or stenosis. VESSELS The inferior vena cava is normal in size. PERICARDIUM No pericardial effusion. Vel Kraus MD (Electronically Signed) Final Date:22 January 2018 20:50
[2018-01-23] VITALS (11 sets, daily range): BP systolic 115–123; BP diastolic 72–80; PULSE 74–85; RESP 22–40; TEMP 98.3–99.2; O2SAT 95–98
[2018-01-23] MEDS: AZTREONAM INJ 2,000 MG in SODIUM CHLORIDE 0.9% INJ 100 ML IV SCH ×3 (00:22→15:56)
[2018-01-23 02:50] LABS: AUTOMATED NEUTROPHIL # 30.9 TH/MM3 (1.8-7.7); BASOPHIL % 0.1 % (0.0-2.0); EOSINOPHIL % 0.1 % (0.0-4.0); HEMATOCRIT 32.9 % (39.0-51.0); HEMOGLOBIN 11.4 GM/DL (13.0-17.0); MEAN CELL VOLUME 88.1 FL (80.0-100.0); MEAN CORPUSCULAR HEMOGLOBIN 30.4 PG (27.0-34.0); MEAN CORPUSCULAR HGB CONC 34.5 % (32.0-36.0); MEAN PLATELET VOLUME 7.3 FL (7.0-11.0); MONO % 3.6 % (0.0-8.0); MONOCYTE # 1.2 TH/MM3 (0-0.9); NEUT % 93.2 % (16.0-70.0); PLATELET COUNT 162 TH/MM3 (150-450); RED BLOOD COUNT 3.74 MIL/MM3 (4.50-5.90); RED CELL DISTRIBUTION WIDTH 12.5 % (11.6-17.2); WHITE BLOOD COUNT 33.1 TH/MM3 (4.0-11.0)
[2018-01-23] MEDS: SODIUM CHLOR 0.9% 1000 ML INJ 1,000 ML IV SCH ×3 (02:58→20:27)
[2018-01-23] MEDS: CHLORHEXIDINE GLUCONATE 2 % 1 PACK (2 CLOTHS) TOP SCH (03:11)
[2018-01-23 03:36] LABS: ALBUMIN 2.3 GM/DL (3.4-5.0); CALCIUM-PROTEIN CORRECTED 7.9 MG/DL (8.5-10.1); CREATININE 0.99 MG/DL (0.60-1.30); TOTAL BILIRUBIN ADULT 0.5 MG/DL (0.2-1.0); TOTAL PROTEIN 5.4 GM/DL (6.4-8.2)
[2018-01-23 03:38] LABS: BANDS 18 % (0-6); METAMYELOCYTES 1 % (0-1); MONOCYTES 2 % (0-8); NEUTROPHIL # MANUAL DIFF 32.4 TH/MM3 (1.8-7.7); POLYS (SEG NEUTROPHILS) 79 % (16-70)
[2018-01-23 03:41] LABS: DOHLE BODIES PRESENT (NONE SEEN); TOXIC GRANULATION 1+ (NORMAL); TOXIC VACUOLATION PRESENT (NONE SEEN)
--- NOTE | 2018-01-23 04:58 | RADRPT ---
EXAM DATE/TIME: 01/23/2018 03:52 [facility] COMPARISON: CHEST SINGLE AP, January 22, 2018, 17:58. INDICATIONS : Shortness of breath, possible pulmonary disease. MEDICAL HISTORY : None. SURGICAL HISTORY : None. ENCOUNTER: Subsequent ACUITY: 2 days PAIN SCORE: 0/10 LOCATION: Bilateral chest FINDINGS: Mild right base consolidation not significantly changed. Left lung remains clear. No pleural effusion . No pneumothorax. Heart size stable, upper limits of normal. Left internal jugular central venous catheter with tip at the atriocaval junction again noted. CONCLUSION: Persistent mild right base infiltrate. Talon Fall MD on January 23, 2018 at 4:56 Board Certified Radiologist. This report was verified electronically.
[2018-01-23] MEDS: FAMOTIDINE 20 MG/2 ML VIAL IV PUSH SCH ×2 (08:01→20:23)
[2018-01-23] MEDS: SODIUM CHLORIDE 0.9% FLUSH 10 ML FLUSH IV FLUSH SCH ×2 (08:01→20:23)
[2018-01-23] MEDS: metroNIDAZOLE 500 MG INJ 100 ML IV SCH ×2 (08:02→14:59)
--- NOTE | 2018-01-23 09:17 | HHI.CCPN ---
Subjective Remarks/Hospital Course Patient is a 47-year-old male with no significant past medical history who presented to the emergency department thinking that he is developing sepsis from a wound on the right forearm dorsum. Apparently he fell on a rock about a month ago at that time had wound infection currently there is a scab at the site of wound with some swelling around it but no fluctuation. Initially normotensive but developed hypotension in the ER, BP 70/31. After 3 L of normal saline boluses patient's blood pressure remained low at high 70 to low 80s systolic. Labs showed leukocytosis at 42.3 with 19% bands, Na130. BUN/ creatinine elevated at 33/1.65. Lactic acid is elevated at 3.2. Received vancomycin and aztreonam. Due to persistent hypotension after 3 L normal saline boluses, norepinephrine drip ordered and critical care medicine was consulted for admission due to septic shock. On my evaluation in the ED patient is hypotensive appears ill. On further interview he had admits to IV drug use with cocaine last injection was 3 days ago. He had been doing IV drugs on and off for approximately 10 years. Denies history of endocarditis. Bedside echo performed by me did not show any large vegetation, formal echo is pending at this time. Due to right upper quadrant tenderness a CT of the abdomen and pelvis is ordered we also will get a CT of the forearm to rule out any abscess less likely. SUBJ 01/23: Patient subjectively feels better. Urine output improved, creatinine has normalized. Currently on Levophed at 2 mcg/min. Map about 80. 2D echo did not show any obvious vegetations, blood cultures are pending at this time. Objective Vital Signs Date Time Temp Pulse Resp B/P (MAP) Pulse Ox O2 Delivery O2 Flow Rate FiO2 01/23/18 06:58 90 116/76 01/23/18 04:00 98.3 25 97 01/22/18 16:12 Nasal Cannula 2.00 Intake and Output 01/23/18 01/23/18 01/24/18 08:00 16:00 00:00 Intake Total 2508 ml Output Total 1350 ml Balance 1158 ml Result Diagram: 01/23/18 0230 01/23/[address] of the head, chest x-ray, x-ray of the right forearm unremarkable Objective Remarks GEN: 47-year-old male who appears ill but improving SKIN: Warm and dry. Pale HEAD: Normocephalic, atraumatic. EYE: Pupils reactive and equal. EOMI. CV: S1, S2. Normal no murmurs. Bedside echo no large vegetations, normal EF Lungs: Chest clear to auscultation Abd: soft, tender to palpation right upper quadrant. Voluntary guarding in the right upper quadrant Ext: Scab in the dorsum midforearm with mild surrounding erythema, swelling but no no fluctuance. Neuro: Alert awake oriented 3. Sensation is grossly intact. No focal deficits A/P Assessment and Plan NEURO: IVDU Cocaine abuse -Use Ativan for anxiety, withdrawal RESP: -Nasal cannula oxygen -DuoNeb every 6 hours as needed -CT of the chest to evaluate for infiltrate, septic emboli-no evidence of septic emboli CV: Septic shock Lactic acidosis Probable infective endocarditis -Normal saline IV fluids given 5L boluses given on admission -Maintenance IV fluid at 150 mL/h-reduced to 100 mL/h -Levophed to keep map above 65, weaned to DC -2d echo- no vegetation -Bedside echo did not show large vegetations, normal ejection fraction, formal echo pending GI: RUQ pain -CT abdomen pelvis-negative for acute findings -Regular diet, IV Famotine -Hepatitis profile : Acute kidney injury Dehydration -IV hydration as above monitor renal function closely. -Strict intake output ID: Septic shock Probable infective endocarditis -Send blood culture urine culture -Continue vancomycin, Azactam and Flagyl -Infectious disease consult appreciated -2D echo negative for vegetation, if blood cultures are positive check ANKUR HEME: -Monitor CBC, CMP MSK: -Fall with swelling on the dorsum of the left forearm, CT no evidence of abscess ENDO: -Electrolyte replacement per protocol PROPH: -Bilateral lower extremity SCDs. Lovenox/famotidine LINES: -Utilize peripheral IVs, central line if continued Levophed requirement Level 3 Consult [facility] to follow commands Henry Hanley MD Jan 23, 2018 09:17
[2018-01-23] MEDS: VANCOMYCIN 1,000 MG/NS 250 ML IV SCH ×4 (11:08→23:16)
[2018-01-23] MEDS: ENOXAPARIN SODIUM 40 MG/0.4 ML SYRINGE SQ SCH (14:59)
--- NOTE | 2018-01-23 21:05 | HHI.IDPN ---
Subjective Subjective Remarks Consult was dictated on patient yesterday evening. Patient was seen in ED. Consult report not yet in EMR. Patient had fallen on a rock in brackish water and developed a lump at the volar aspect of the left arm which had drained clear fluid.then scabbed over. Patient says he feels better. Was complaining of abdominal pain yesterday. Now says he has little abdominal pain and points to the epigastric area. Eating. Says he had no problem with balance when he ambulated today. Afebrile. No longer on Levophed. Antibiotics Vancomycin. Aztreonam. Past Medical History No significant past illnesses. Allergies: Coded Allergies: penicillin G (Unverified Allergy, Unknown, 01/22/18) Objective . Vital Signs Date Time Temp Pulse Resp B/P (MAP) Pulse Ox O2 Delivery O2 Flow Rate FiO2 01/23/18 18:00 80 01/23/18 16:00 99.2 85 40 115/78 (90) 97 01/23/18 16:00 85 01/23/18 14:00 76 01/23/18 12:00 77 01/23/18 12:00 98.4 77 34 123/79 (94) 98 01/23/18 10:00 78 01/23/18 08:00 85 01/23/18 08:00 98.6 85 28 115/72 (86) 95 01/23/18 06:58 90 116/76 01/23/18 06:48 77 124/79 01/23/18 06:38 82 115/67 01/23/18 06:00 77 01/23/18 05:35 79 124/77 01/23/18 05:25 79 124/77 01/23/18 05:11 80 112/75 01/23/18 04:00 98.3 75 25 120/76 (91) 97 01/23/18 04:00 75 01/23/18 03:16 79 119/75 01/23/18 02:00 76 01/23/18 01:30 89 124/76 01/23/18 00:23 76 123/80 01/23/18 00:00 74 01/23/18 00:00 98.6 74 22 123/80 (94) 98 01/22/18 23:14 74 115/73 01/22/18 22:00 73 01/23/18 01/23/18 01/24/18 15:00 23:00 07:00 Intake Total 914 ml 1915 ml Output Total 1950 ml Balance 914 ml -35 ml Intake Oral 750 ml IV Total 914 ml 1165 ml Output Urine Total 1950 ml # Bowel Movements 0 . Laboratory Tests Test 01/22/18 13:00 01/23/18 02:30 White Blood Count 42.3 TH/MM3 33.1 TH/MM3 Red Blood Count 4.35 MIL/MM3 3.74 MIL/MM3 Hemoglobin 13.0 GM/DL 11.4 GM/DL Hematocrit 38.8 % 32.9 % Mean Corpuscular Volume 89.2 FL 88.1 FL Mean Corpuscular Hemoglobin 29.9 PG 30.4 PG Mean Corpuscular Hemoglobin Concent 33.5 % 34.5 % Red Cell Distribution Width 12.6 % 12.5 % Platelet Count 205 TH/MM3 162 TH/MM3 Mean Platelet Volume 7.5 FL 7.3 FL Neutrophils (%) (Auto) 95.2 % 93.2 % Lymphocytes (%) (Auto) 1.2 % 3.0 % Monocytes (%) (Auto) 3.5 % 3.6 % Eosinophils (%) (Auto) 0.0 % 0.1 % Basophils (%) (Auto) 0.1 % 0.1 % Neutrophils # (Auto) 40.3 TH/MM3 30.9 TH/MM3 Lymphocytes # (Auto) 0.5 TH/MM3 1.0 TH/MM3 Monocytes # (Auto) 1.5 TH/MM3 1.2 TH/MM3 Eosinophils # (Auto) 0.0 TH/MM3 0.0 TH/MM3 Basophils # (Auto) 0.0 TH/MM3 0.0 TH/MM3 CBC Comment AUTO DIFF AUTO DIFF Differential Total Cells Counted 100 100 Neutrophils % (Manual) 65 % 79 % Band Neutrophils % 19 % 18 % Lymphocytes % 2 % Monocytes % 3 % 2 % Neutrophils # (Manual) 40.2 TH/MM3 32.4 TH/MM3 Metamyelocytes 9 % 1 % Myelocytes 2 % Differential Comment FINAL DIFF MANUAL FINAL DIFF MANUAL Toxic Granulation 1+ 1+ Platelet Estimate NORMAL NORMAL Platelet Morphology Comment NORMAL NORMAL Toxic Vacuolation PRESENT Dohle Bodies PRESENT Laboratory Tests Test 01/22/18 13:00 01/22/18 14:04 01/22/18 19:20 01/23/18 02:30 Blood Urea Nitrogen 33 MG/DL 21 MG/DL Creatinine 1.65 MG/DL 0.99 MG/DL Random Glucose 118 MG/DL 128 MG/DL Total Protein 6.3 GM/DL 5.4 GM/DL Albumin 3.0 GM/DL 2.3 GM/DL Calcium Level 8.5 MG/DL 7.0 MG/DL Magnesium Level 1.9 MG/DL Alkaline Phosphatase 133 U/L 120 U/L Aspartate Amino Transf (AST/SGOT) 58 U/L 42 U/L Alanine Aminotransferase (ALT/SGPT) 62 U/L 51 U/L Total Bilirubin 0.5 MG/DL 0.5 MG/DL Sodium Level 130 MEQ/L 141 MEQ/L Potassium Level 4.7 MEQ/L 3.5 MEQ/L Chloride Level 98 MEQ/L 112 MEQ/L Carbon Dioxide Level 27.0 MEQ/L 22.0 MEQ/L Anion Gap 5 MEQ/L 7 MEQ/L Estimat Glomerular Filtration Rate 45 ML/MIN 81 ML/MIN Thyroxine (T4) 8.1 MCG/DL Thyroid Stimulating Hormone 3rd Gen 0.327 uIU/ML Lactic Acid Level 3.2 mmol/L 1.8 mmol/L 1.5 mmol/L Protein Corrected Calcium 7.9 MG/DL Microbiology Date/Time Source Procedure Growth Status 01/22/18 14:05 Blood Peripheral Aerobic Blood Culture - Preliminary NO GROWTH IN 1 DAY Resulted 01/22/18 14:05 Blood Peripheral Anaerobic Blood Culture - Preliminary NO GROWTH IN 1 DAY Resulted 01/22/18 13:30 Blood Peripheral Aerobic Blood Culture - Preliminary NO GROWTH IN 1 DAY Resulted 01/22/18 13:30 Blood Peripheral Anaerobic Blood Culture - Preliminary NO GROWTH IN 1 DAY Resulted 01/22/18 15:36 Urine Clean Catch Urine Culture - Preliminary NO GROWTH IN 24 HOURS. Resulted Physical Exam GENERAL: Patient is in no acute distress. Awake and alert and oriented. HEENT: EOMI, CLEM, No icterus. NECK: Supple without adenopathy. LUNGS: Clear breath sounds bilateral. CARDIAC: Regular rate and rhythm, no murmurs, rubs or gallops. ABDOMEN: Soft, non tender. EXTREMITIES: No CCE. Lamp at the R, forearm. SKIN: No rash NEURO: Non focal. PSYCH: CAlm and cooperative. Assessment & Plan Diagnosis: (1) Septic shock ICD Codes: A41.9 - Sepsis, unspecified organism; R65.21 - Severe sepsis with septic shock Status: Acute Plan: Continue Vancomycin and Aztreonam. (2) Acute kidney failure ICD Codes: N17.9 - Acute kidney failure, unspecified Status: Acute (3) Probable infective endocarditis Status: Acute Plan: No evidence of endocarditis on 2D ECHO. Monitor blood cultures. (4) IVDU (intravenous drug user) ICD Codes: F19.90 - Other psychoactive substance use, unspecified, uncomplicated Status: Acute Adolfo Crespo MD Jan 23, 2018 21:05
[2018-01-23] MEDS ORDERED: PROMETHAZINE INJ 25 MG/ML VIAL IM ONE (21:45)
[2018-01-24] VITALS (9 sets, daily range): BP systolic 106–137; BP diastolic 59–86; PULSE 61–76; RESP 20–36; TEMP 98.1–99.2; O2SAT 95–97
[2018-01-24] MEDS: metroNIDAZOLE 500 MG INJ 100 ML IV SCH ×3 (00:26→16:55)
[2018-01-24] MEDS: AZTREONAM INJ 2,000 MG in SODIUM CHLORIDE 0.9% INJ 100 ML IV SCH ×3 (01:29→18:26)
[2018-01-24] MEDS ORDERED: TEMAZEPAM 15 MG CAP PO PRN (02:15)
[2018-01-24] MEDS: CHLORHEXIDINE GLUCONATE 2 % 1 PACK (2 CLOTHS) TOP SCH (04:00)
[2018-01-24] MEDS: SODIUM CHLOR 0.9% 1000 ML INJ 1,000 ML IV SCH ×2 (06:14→17:05)
[2018-01-24] MEDS: FAMOTIDINE 20 MG/2 ML VIAL IV PUSH SCH ×2 (08:41→19:57)
[2018-01-24] MEDS: SODIUM CHLORIDE 0.9% FLUSH 10 ML FLUSH IV FLUSH SCH ×2 (09:00→19:57)
[2018-01-24] MEDS: VANCOMYCIN 1,000 MG/NS 250 ML IV SCH ×4 (10:49→23:03)
[2018-01-24 10:55] LABS: HEPATITIS A AB IGM NEGATIVE (NEGATIVE); HEPATITIS B CORE AB IGM NEGATIVE (NEGATIVE); HEPATITIS B SURFACE ANTIGEN NEGATIVE (NEGATIVE); HEPATITIS C AB IgG NEGATIVE (NEGATIVE)
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
[2018-01-24] MEDS: ENOXAPARIN SODIUM 40 MG/0.4 ML SYRINGE SQ SCH (16:00)
[2018-01-24] MEDS ORDERED: PHARMACY ORDERED LAB ONE (22:45)
[2018-01-24 23:57] LABS: ALBUMIN 2.7 GM/DL (3.4-5.0); ALT (GPT) 47 U/L (12-78); AST (GOT) 37 U/L (15-37); BICARBONATE 28.4 MEQ/L (21.0-32.0); BLOOD UREA NITROGEN 11 MG/DL (7-18); CALCIUM 8.2 MG/DL (8.5-10.1); CHLORIDE 108 MEQ/L (98-107); CREATININE 0.88 MG/DL (0.60-1.30); GLOMERULAR FILTRATION RATE 93 ML/MIN (>89); GLUCOSE,RANDOM 141 MG/DL (74-106); SODIUM (NA) 142 MEQ/L (136-145)
[2018-01-25] VITALS (7 sets, daily range): BP systolic 122–168; BP diastolic 68–81; PULSE 63–83; RESP 19–24; TEMP 96.8–98.2; O2SAT 95–98
[2018-01-25] LABS: ALKALINE PHOSPHATASE 147 U/L (45-117); TOTAL BILIRUBIN ADULT 0.2 MG/DL (0.2-1.0); TOTAL PROTEIN 6.2 GM/DL (6.4-8.2); VANCOMYCIN TROUGH 1.7 MCG/ML (5.0-10.0)
[2018-01-25] MEDS: metroNIDAZOLE 500 MG INJ 100 ML IV SCH ×3 (00:14→17:27)
[2018-01-25] MEDS: AZTREONAM INJ 2,000 MG in SODIUM CHLORIDE 0.9% INJ 100 ML IV SCH ×3 (01:11→18:41)
[2018-01-25] MEDS: CHLORHEXIDINE GLUCONATE 2 % 1 PACK (2 CLOTHS) TOP SCH (04:00)
[2018-01-25] MEDS: SODIUM CHLOR 0.9% 1000 ML INJ 1,000 ML IV SCH ×2 (04:42→21:24)
[2018-01-25] MEDS: VANCOMYCIN 1,000 MG/NS 250 ML IV SCH ×6 (05:46→21:23)
[2018-01-25 07:43] LABS: AUTOMATED NEUTROPHIL # 11.3 TH/MM3 (1.8-7.7); BASOPHIL # 0.1 TH/MM3 (0-0.2); BASOPHIL % 0.5 % (0.0-2.0); EOSINOPHIL # 0.2 TH/MM3 (0-0.4); EOSINOPHIL % 1.4 % (0.0-4.0); HEMATOCRIT 40.9 % (39.0-51.0); HEMOGLOBIN 14.2 GM/DL (13.0-17.0); LYMPHOCYTE # 1.2 TH/MM3 (1.0-4.8); MEAN CELL VOLUME 88.3 FL (80.0-100.0); MEAN CORPUSCULAR HEMOGLOBIN 30.6 PG (27.0-34.0); MEAN CORPUSCULAR HGB CONC 34.7 % (32.0-36.0); MONO % 4.7 % (0.0-8.0); MONOCYTE # 0.6 TH/MM3 (0-0.9); NEUT % 84.4 % (16.0-70.0); PLATELET COUNT 250 TH/MM3 (150-450); RED BLOOD COUNT 4.63 MIL/MM3 (4.50-5.90); WHITE BLOOD COUNT 13.3 TH/MM3 (4.0-11.0)
[2018-01-25 08:06] LABS: ALBUMIN 2.9 GM/DL (3.4-5.0); AST (GOT) 35 U/L (15-37); BICARBONATE 28.7 MEQ/L (21.0-32.0); BLOOD UREA NITROGEN 9 MG/DL (7-18); CALCIUM 8.5 MG/DL (8.5-10.1); CHLORIDE 105 MEQ/L (98-107); CREATININE 0.78 MG/DL (0.60-1.30); GLOMERULAR FILTRATION RATE 107 ML/MIN (>89); GLUCOSE,RANDOM 117 MG/DL (74-106); SODIUM (NA) 141 MEQ/L (136-145)
[2018-01-25 08:08] LABS: ALT (GPT) 47 U/L (12-78)
[2018-01-25 08:10] LABS: ALKALINE PHOSPHATASE 162 U/L (45-117); TOTAL BILIRUBIN ADULT 0.3 MG/DL (0.2-1.0); TOTAL PROTEIN 6.7 GM/DL (6.4-8.2)
[2018-01-25] MEDS: SODIUM CHLORIDE 0.9% FLUSH 10 ML FLUSH IV FLUSH SCH ×2 (09:00→21:23)
[2018-01-25] MEDS: FAMOTIDINE 20 MG/2 ML VIAL IV PUSH SCH ×2 (09:06→21:22)
--- NOTE | 2018-01-25 14:10 | HHI.PR ---
Subjective Remarks Follow up with sepsis shock/probable infective endocarditis 01/25/18-patient seen and examined; no chest pain, shortness of breath. patient complains of oral rashes, HSV 2 eruptions. Afebrile. +SPENCER Objective Vitals Vital Signs Date Time Temp Pulse Resp B/P (MAP) Pulse Ox O2 Delivery O2 Flow Rate FiO2 01/25/18 12:00 98.1 83 19 128/69 (88) 97 01/25/18 08:00 97.5 63 19 168/78 (108) 98 01/25/18 04:00 96.8 64 20 151/77 (101) 98 01/25/18 03:51 71 01/25/18 00:00 97.3 75 24 129/81 (97) 95 01/24/18 23:42 69 01/24/18 20:52 98.1 72 20 122/70 (87) 97 01/24/18 20:00 76 01/24/18 17:23 98.5 70 20 108/75 (86) 95 01/24/18 16:00 61 I/O 01/24/18 01/24/18 01/24/18 01/25/18 01/25/18 01/25/18 07:00 15:00 23:00 07:00 15:00 23:00 Intake Total 2056 ml 450 ml 560 ml 1930 ml Output Total 2100 ml Balance -44 ml 450 ml 560 ml 1930 ml Intake Oral 650 ml 360 ml 480 ml IV Total 1406 ml 450 ml 200 ml 1450 ml Output Urine Total 2100 ml # Voids 2 # Bowel Movements 0 0 Result Diagram: 01/25/18 0549 01/25/18 0549 Imaging Last Impressions Chest X-Ray 01/23/18 0000 Signed Impressions: Service Date/Time: Tuesday, January 23, 2018 03:52 - CONCLUSION: Persistent mild right base infiltrate. Talon Fall MD Abdomen/Pelvis CT 01/22/18 1458 Signed Impressions: Service Date/Time: Monday, January 22, 2018 16:59 - CONCLUSION: 1. There is trace free fluid in the pelvis from uncertain etiology. No free air is seen. 2. There is a small amount of air within the right rectus abdominis muscle inferiorly. However, no mass, fluid collection, or asymmetric size is appreciated in this area. Etiology is uncertain. Suggest correlation for any recent injections in this area. 3. Please refer to chest CT report for description of the supradiaphragmatic findings. Talon Freire MD Head CT 01/22/18 1221 Signed Impressions: Service Date/Time: Monday, January 22, 2018 13:17 - CONCLUSION: Normal examination. Talon Prasad MD Upper Extremity CT 01/22/18 0000 Signed Impressions: Service Date/Time: Monday, January 22, 2018 17:06 - CONCLUSION: 1. No acute osseous abnormality is identified. 2. Mild focal soft tissue swelling along the ulnar aspect of the midforearm. There is a linear density versus mineralization of soft tissues in the subcutaneous region. This is of uncertain etiology. Suggest correlation for any foreign body which could be in this area. Talon Freire MD Radius/Ulna X-Ray 01/22/18 0000 Signed Impressions: Service Date/Time: Monday, January 22, 2018 11:09 - CONCLUSION: No bony injury is seen. Talon Prasad MD Chest CT 01/22/18 0000 Signed Impressions: Service Date/Time: Monday, January 22, 2018 16:59 - CONCLUSION: 1. There are no imaging findings to indicate septic emboli. There is atelectasis at both lung bases. 2. There is mild smooth septal thickening in the upper lung zones bilaterally which can be seen as early changes of interstitial pulmonary edema. Talon Freire MD Objective Remarks GENERAL: NAD SKIN: Warm and dry.+ HSV rashes/ulcer HEAD: Normocephalic. EYES: No scleral icterus. No injection or drainage. NECK: Supple, trachea midline. No JVD or lymphadenopathy. CARDIOVASCULAR: Regular rate and rhythm without murmurs, gallops, or rubs. RESPIRATORY: Breath sounds equal bilaterally. No accessory muscle use. GASTROINTESTINAL: Abdomen soft, non-tender, nondistended. MUSCULOSKELETAL: No cyanosis, or edema. BACK: Nontender without obvious deformity. No CVA tenderness. A/P Problem List: (1) Septic shock ICD Code: A41.9 - Sepsis, unspecified organism; R65.21 - Severe sepsis with septic shock Status: Acute (2) Probable infective endocarditis Status: Acute (3) Acute kidney failure ICD Code: N17.9 - Acute kidney failure, unspecified Status: Acute (4) Hyponatremia ICD Code: E87.1 - Hypo-osmolality and hyponatremia (5) Lactic acidosis ICD Code: E87.2 - Acidosis (6) IVDU (intravenous drug user) ICD Code: F19.90 - Other psychoactive substance use, unspecified, uncomplicated Status: Acute Assessment and Plan 47 years old man with Septic shock Lactic acidosis Probable infective endocarditis Currently on Vancomycin and Aztreonam 2D echo without any evidence of of endocarditis May consider ANKUR IVDU Cocaine abuse RUQ pain -CT abdomen pelvis-negative for acute findings -Hepatitis profile Acute kidney injury resolved 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 Lovenox/famotidine Nathan Silverman MD Jan 25, 2018 14:10
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
[2018-01-25] MEDS: ENOXAPARIN SODIUM 40 MG/0.4 ML SYRINGE SQ SCH (16:00)
[2018-01-25] MEDS: ACYCLOVIR 800 MG TAB PO SCH ×2 (18:41→21:22)
[2018-01-25] MEDS ORDERED: PHARMACY ORDERED LAB ONE (21:45)
[2018-01-26] VITALS: BP 134/76; PULSE 78; RESP 20; TEMP 98.1; O2SAT 94
[2018-01-26] MEDS: metroNIDAZOLE 500 MG INJ 100 ML IV SCH ×2 (00:24→09:35)
[2018-01-26] MEDS: AZTREONAM INJ 2,000 MG in SODIUM CHLORIDE 0.9% INJ 100 ML IV SCH ×2 (00:24→11:00)
[2018-01-26] MEDS: CHLORHEXIDINE GLUCONATE 2 % 1 PACK (2 CLOTHS) TOP SCH (00:25)
[2018-01-26 04:00] VITALS: BP 145/72; PULSE 70; RESP 20; TEMP 97.4; O2SAT 94
[2018-01-26] MEDS: ACYCLOVIR 800 MG TAB PO SCH ×2 (06:41→09:35)
[2018-01-26] MEDS: VANCOMYCIN 1,000 MG/NS 250 ML IV SCH ×2 (06:42)
[2018-01-26 08:00] VITALS: BP 128/72; PULSE 113; RESP 17; TEMP 97.2; O2SAT 95
[2018-01-26 08:15] LABS: HEMATOCRIT 40.6 % (39.0-51.0); HEMOGLOBIN 13.8 GM/DL (13.0-17.0); MEAN CELL VOLUME 88.3 FL (80.0-100.0); PLATELET COUNT 299 TH/MM3 (150-450); RED CELL DISTRIBUTION WIDTH 12.9 % (11.6-17.2); WHITE BLOOD COUNT 11.1 TH/MM3 (4.0-11.0)
[2018-01-26] MEDS: SODIUM CHLORIDE 0.9% FLUSH 10 ML FLUSH IV FLUSH SCH (09:00)
--- NOTE | 2018-01-26 09:17 | RADRPT ---
EXAM DATE/TIME: 01/26/2018 08:43 [facility] COMPARISON: CT THORAX W/O CONTRAST, January 22, 2018, 16:59. CHEST SINGLE AP, January 23, 2018, 3:52. INDICATIONS : Pneumonia. MEDICAL HISTORY : None. SURGICAL HISTORY : None. ENCOUNTER: Subsequent ACUITY: 4 - 6 days PAIN SCORE: 0/10 LOCATION: Bilateral chest FINDINGS: Frontal and lateral views of the chest demonstrate a normal-sized cardiac silhouette. No pneumothorax or airspace consolidation is present. There is blunting of the costophrenic sulci bilaterally. Bones and soft tissues demonstrate no acute abnormality. CONCLUSION: There are no imaging findings to indicate pneumonia. No air space consolidation is present. There is a small volume of pleural fluid bilaterally. Talon Freire MD on January 26, 2018 at 9:15 Board Certified Radiologist. This report was verified electronically.
[2018-01-26] MEDS: FAMOTIDINE 20 MG/2 ML VIAL IV PUSH SCH (09:38)
[2018-01-26] MEDS: SODIUM CHLOR 0.9% 1000 ML INJ 1,000 ML IV SCH (10:42)
[2018-01-26] MEDS ORDERED: ACYC800T PO (11:18)
--- NOTE | 2018-01-26 11:22 | HHI.IDPN ---
Note Infectious Disease Note Patient says he feels fine. Denies chills. No shortness of breath. No complaints. Afebrile. White blood cell count improved. Chest x-ray shows no infiltrate. He is awake and alert and has no new complaints. 47-year-old white male who presented to the emergency department this morning complaining of right forearm pain which has been ongoing for about a month. The patient also has problems with unsteady gait and states that over the past three or four days he has been having difficulty ambulating and stumbling. He denies dizziness. He was noted to be hypotensive with blood pressure of 74/52 and white count was noted to be 42,000 and he was noted to have acute renal insufficiency an lactic acid level was noted to be elevated at 3.2. The patient had a recent injury to his right forearm where he cut his forearm on a rock in brackish water while moving a boat. He states that he was having some clear drainage from the forearm. The injury was approximately a month ago and he states that it was healing and over the past four days he had a slight serous drainage coming from the tiny opening at the wound. There is no erythema. The patient also has recent IV drug use. PAST MEDICAL HISTORY: Unremarkable per the patient. ALLERGIES: PENICILLIN. THE PATIENT STATES HE HAD A REACTION WHILE BEING TREATED A CHILD. HIS FACE "BLEW UP". MEDICATIONS: 1. Aztreonam. 2. Metronidazole. 3. Vancomycin. Current Medications Medications (Trade) Dose Ordered Sig/Sohail Route PRN Reason Start Time Stop Time Status Last Admin Dose Admin Sodium Chloride 1,000 ml @ 100 mls/hr Q10H IV 01/22/18 15:14 01/25/18 21:24 Sodium Chloride (NS Flush) 2 ml UNSCH PRN IV FLUSH FLUSH AFTER USING IV ACCESS 01/22/18 15:15 Sodium Chloride (NS Flush) 2 ml BID IV FLUSH 01/22/18 21:00 01/25/18 21:23 Famotidine (Pepcid Inj) 20 mg Q12HR IV PUSH 01/22/18 21:00 01/26/18 09:38 Albuterol/ Ipratropium (Duoneb Neb) 1 ampule Q4HR NEB PRN INH WHEEZING 01/22/18 15:15 Enoxaparin Sodium (Lovenox Inj) 40 mg Q24H SQ 01/22/18 16:00 01/22/18 16:03 Miscellaneous Information 1 Q361D XX 01/22/18 15:15 Chlorhexidine Gluconate (Chlorhexidine 2% Cloth) 3 pack Taper DAILY@04 TOP 01/23/18 04:00 01/19/19 03:59 01/24/18 04:00 Chlorhexidine Gluconate (Chlorhexidine 2% Cloth) 3 pack UNSCH PRN TOP HYGIENIC CARE 01/22/18 15:15 Terbutaline Sulfate (Brethine Inj) 1 mg UNSCH PRN SQ For Extravasation 01/22/18 15:15 Aztreonam 2000 mg/ Sodium Chloride 100 ml @ 200 mls/hr Q8H IV 01/22/18 17:00 01/26/18 11:00 Metronidazole 100 ml @ 100 mls/hr Q8H IV 01/22/18 16:00 01/26/18 09:35 Pharmacy Profile Note 0 ml @ 0 mls/hr UNSCH OTHER 01/22/18 15:30 Temazepam (Restoril) 15 mg HS PRN PO insomnia 01/24/18 02:15 01/24/18 02:30 Vancomycin HCl 1000 mg/Sodium Chloride 250 ml @ 250 mls/hr Q8H IV 01/25/18 06:00 01/26/18 06:42 Acyclovir (Zovirax) 800 mg 5 TIMES A DAY PO 01/25/18 18:00 01/26/18 09:35 Miscellaneous Information SPECIFIC LAB TO BE DRAWN:VANCOMYCIN TROUGH DATE TO... ONCE ONCE .XX 01/28/18 05:45 01/28/18 05:46 SOCIAL HISTORY: The patient notes he drinks alcohol on rare occasions. Positive tobacco. Positive marijuana use. Positive IV drug use in the form of cocaine. The patient lives with his mother and his girlfriend. OBJECTIVE: Vital Signs Date Time Temp Pulse Resp B/P (MAP) Pulse Ox O2 Delivery O2 Flow Rate FiO2 01/26/18 08:00 97.2 113 17 128/72 (90) 95 01/26/18 04:00 97.4 70 20 145/72 (96) 94 01/26/18 00:00 98.1 78 20 134/76 (95) 94 01/25/18 20:00 98.2 80 22 122/68 (86) 95 01/25/18 16:00 97.9 65 19 141/71 (94) 98 01/25/18 12:00 98.1 83 19 128/69 (88) 97 Laboratory Tests Test 01/25/18 05:49 01/26/18 07:12 White Blood Count 13.3 TH/MM3 11.1 TH/MM3 Red Blood Count 4.63 MIL/MM3 4.60 MIL/MM3 Hemoglobin 14.2 GM/DL 13.8 GM/DL Hematocrit 40.9 % 40.6 % Mean Corpuscular Volume 88.3 FL 88.3 FL Mean Corpuscular Hemoglobin 30.6 PG 30.0 PG Mean Corpuscular Hemoglobin Concent 34.7 % 34.0 % Red Cell Distribution Width 13.0 % 12.9 % Platelet Count 250 TH/MM3 299 TH/MM3 Mean Platelet Volume 8.0 FL 8.0 FL Neutrophils (%) (Auto) 84.4 % Lymphocytes (%) (Auto) 9.0 % Monocytes (%) (Auto) 4.7 % Eosinophils (%) (Auto) 1.4 % Basophils (%) (Auto) 0.5 % Neutrophils # (Auto) 11.3 TH/MM3 Lymphocytes # (Auto) 1.2 TH/MM3 Monocytes # (Auto) 0.6 TH/MM3 Eosinophils # (Auto) 0.2 TH/MM3 Basophils # (Auto) 0.1 TH/MM3 CBC Comment DIFF FINAL Differential Comment Laboratory Tests Test 01/24/18 23:00 01/25/18 05:49 Blood Urea Nitrogen 11 MG/DL 9 MG/DL Creatinine 0.88 MG/DL 0.78 MG/DL Random Glucose 141 MG/DL 117 MG/DL Total Protein 6.2 GM/DL 6.7 GM/DL Albumin 2.7 GM/DL 2.9 GM/DL Calcium Level 8.2 MG/DL 8.5 MG/DL Alkaline Phosphatase 147 U/L 162 U/L Aspartate Amino Transf (AST/SGOT) 37 U/L 35 U/L Alanine Aminotransferase (ALT/SGPT) 47 U/L 47 U/L Total Bilirubin 0.2 MG/DL 0.3 MG/DL Sodium Level 142 MEQ/L 141 MEQ/L Potassium Level 3.6 MEQ/L 3.6 MEQ/L Chloride Level 108 MEQ/L 105 MEQ/L Carbon Dioxide Level 28.4 MEQ/L 28.7 MEQ/L Anion Gap 6 MEQ/L 7 MEQ/L Estimat Glomerular Filtration Rate 93 ML/MIN 107 ML/MIN IMAGING: Chest X-Ray 01/26/18 0600 Signed Impressions: Service Date/Time: Friday, January 26, 2018 08:43 - CONCLUSION: There are no imaging findings to indicate pneumonia. No air space consolidation is present. There is a small volume of pleural fluid bilaterally. Talon Freire MD Chest X-Ray 01/23/18 0000 Signed Impressions: Service Date/Time: Tuesday, January 23, 2018 03:52 - CONCLUSION: Persistent mild right base infiltrate. Talon Fall MD Abdomen/Pelvis CT 01/22/18 1458 Signed Impressions: Service Date/Time: Monday, January 22, 2018 16:59 - CONCLUSION: 1. There is trace free fluid in the pelvis from uncertain etiology. No free air is seen. 2. There is a small amount of air within the right rectus abdominis muscle inferiorly. However, no mass, fluid collection, or asymmetric size is appreciated in this area. Etiology is uncertain. Suggest correlation for any recent injections in this area. 3. Please refer to chest CT report for description of the supradiaphragmatic findings. Talon Freire MD Head CT 01/22/18 1221 Signed Impressions: Service Date/Time: Monday, January 22, 2018 13:17 - CONCLUSION: Normal examination. Talon Prasad MD Upper Extremity CT 01/22/18 0000 Signed Impressions: Service Date/Time: Monday, January 22, 2018 17:06 - CONCLUSION: 1. No acute osseous abnormality is identified. 2. Mild focal soft tissue swelling along the ulnar aspect of the midforearm. There is a linear density versus mineralization of soft tissues in the subcutaneous region. This is of uncertain etiology. Suggest correlation for any foreign body which could be in this area. Talon Freire MD Radius/Ulna X-Ray 01/22/18 0000 Signed Impressions: Service Date/Time: Monday, January 22, 2018 11:09 - CONCLUSION: No bony injury is seen. Talon Prasad MD Chest CT 01/22/18 0000 Signed Impressions: Service Date/Time: Monday, January 22, 2018 16:59 - CONCLUSION: 1. There are no imaging findings to indicate septic emboli. There is atelectasis at both lung bases. 2. There is mild smooth septal thickening in the upper lung zones bilaterally which can be seen as early changes of interstitial pulmonary edema. Talon Freire MD PHYSICAL EXAMINATION: GENERAL: No acute distress. Awake and alert and oriented. HEENT: Head is atraumatic. Vesicular lesions at the face near left lateral eye lid and around the lips are no drying. Extraocular movements grossly intact. Pupils reactive to light. No icterus. No conjunctival erythema. Oropharynx with dry mucosa. No visible lesions. NECK: Supple without adenopathy or swelling. LUNGS: Decreased breath sounds. HEART: Regular S1 and S2. No audible murmurs, rubs or gallops. ABDOMEN: Bowel sounds present, Non tender. EXTREMITIES: No clubbing or cyanosis or edema. SKIN: No rash. NEUROLOGIC: No gross focal findings. PSYCHIATRIC: Pleasant calm and cooperative. IMPRESSION: 1. Septic shock. Questionable etiology. Resolved. 2. PNA. RLL. Resolved. 3. Acute renal failure. Resolved. 4. Leukocytosis with significant left shift. Almost normal. 5. IV drug use. No evidence of endocarditis on echocardiogram. 6. herpetic skin lesions. Clinically improved. RECOMMENDATIONS: 1. Stop vancomycin. 2. Stop aztreonam. 3. Stop metronidazole. Okay to discharge. No additional antibiotics necessary at this time. Dr. Silverman notified. I will sign off now. Adolfo Crespo MD Jan 26, 2018 11:22
--- NOTE | 2018-01-26 12:36 | HHI.PR ---
Subjective Remarks Follow up with sepsis shock/probable infective endocarditis 01/25/18-patient seen and examined; no chest pain, shortness of breath. patient complains of oral rashes, HSV 2 eruptions. Afebrile. +SPENCER 01/26/18-patient seen and examined, afebrile and no complaints. Case discussed with infectious disease specialist who has clear patient for discharge Objective Vitals Vital Signs Date Time Temp Pulse Resp B/P (MAP) Pulse Ox O2 Delivery O2 Flow Rate FiO2 01/26/18 08:00 97.2 113 17 128/72 (90) 95 01/26/18 04:00 97.4 70 20 145/72 (96) 94 01/26/18 00:00 98.1 78 20 134/76 (95) 94 01/25/18 20:00 98.2 80 22 122/68 (86) 95 01/25/18 16:00 97.9 65 19 141/71 (94) 98 I/O 01/25/18 01/25/18 01/25/18 01/26/18 01/26/18 01/26/18 07:00 15:00 23:00 07:00 15:00 23:00 Intake Total 1930 ml 200 ml 2330 ml 710 ml 100 ml Balance 1930 ml 200 ml 2330 ml 710 ml 100 ml Intake Oral 480 ml 980 ml 360 ml IV Total 1450 ml 200 ml 1350 ml 350 ml 100 ml # Voids 2 4 5 # Bowel Movements 0 1 Result Diagram: 01/26/18 0712 01/25/18 0549 Imaging Last Impressions Chest X-Ray 01/26/18 0600 Signed Impressions: Service Date/Time: Friday, January 26, 2018 08:43 - CONCLUSION: There are no imaging findings to indicate pneumonia. No air space consolidation is present. There is a small volume of pleural fluid bilaterally. Talon Freire MD Abdomen/Pelvis CT 01/22/18 1458 Signed Impressions: Service Date/Time: Monday, January 22, 2018 16:59 - CONCLUSION: 1. There is trace free fluid in the pelvis from uncertain etiology. No free air is seen. 2. There is a small amount of air within the right rectus abdominis muscle inferiorly. However, no mass, fluid collection, or asymmetric size is appreciated in this area. Etiology is uncertain. Suggest correlation for any recent injections in this area. 3. Please refer to chest CT report for description of the supradiaphragmatic findings. Talon Freire MD Head CT 01/22/18 1221 Signed Impressions: Service Date/Time: Monday, January 22, 2018 13:17 - CONCLUSION: Normal examination. Talon Prasad MD Upper Extremity CT 01/22/18 0000 Signed Impressions: Service Date/Time: Monday, January 22, 2018 17:06 - CONCLUSION: 1. No acute osseous abnormality is identified. 2. Mild focal soft tissue swelling along the ulnar aspect of the midforearm. There is a linear density versus mineralization of soft tissues in the subcutaneous region. This is of uncertain etiology. Suggest correlation for any foreign body which could be in this area. Talon Freire MD Radius/Ulna X-Ray 01/22/18 0000 Signed Impressions: Service Date/Time: Monday, January 22, 2018 11:09 - CONCLUSION: No bony injury is seen. Talon Prasad MD Chest CT 01/22/18 0000 Signed Impressions: Service Date/Time: Monday, January 22, 2018 16:59 - CONCLUSION: 1. There are no imaging findings to indicate septic emboli. There is atelectasis at both lung bases. 2. There is mild smooth septal thickening in the upper lung zones bilaterally which can be seen as early changes of interstitial pulmonary edema. Talon Freire MD Objective Remarks GENERAL: NAD SKIN: Warm and dry.+ HSV rashes/ulcer HEAD: Normocephalic. EYES: No scleral icterus. No injection or drainage. NECK: Supple, trachea midline. No JVD or lymphadenopathy. CARDIOVASCULAR: Regular rate and rhythm without murmurs, gallops, or rubs. RESPIRATORY: Breath sounds equal bilaterally. No accessory muscle use. GASTROINTESTINAL: Abdomen soft, non-tender, nondistended. MUSCULOSKELETAL: No cyanosis, or edema. BACK: Nontender without obvious deformity. No CVA tenderness. Procedures none A/P Problem List: (1) Septic shock ICD Code: A41.9 - Sepsis, unspecified organism; R65.21 - Severe sepsis with septic shock Status: Resolved (2) Probable infective endocarditis Status: Acute (3) Acute kidney failure ICD Code: N17.9 - Acute kidney failure, unspecified Status: Resolved (4) Hyponatremia ICD Code: E87.1 - Hypo-osmolality and hyponatremia (5) Lactic acidosis ICD Code: E87.2 - Acidosis (6) IVDU (intravenous drug user) ICD Code: F19.90 - Other psychoactive substance use, unspecified, uncomplicated Status: Acute Assessment and Plan 47 years old man with Septic shock-resolved Lactic acidosis-resolved Probable infective endocarditis s/p Vancomycin and Aztreonam 2D echo without any evidence of of endocarditis Repeat chest x-ray 01/26/18 no evidence of pulmonary infiltrate IVDU Cocaine abuse RUQ pain-resolved -CT abdomen pelvis-negative for acute findings -Hepatitis profile Acute kidney injury 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 Lovenox/famotidine Nathan Silverman MD Jan 26, 2018 12:36
--- NOTE | 2018-01-26 12:38 | HHI.DS ---
Discharge Summary Admission Date Jan 22, 2018 at 15:19 Discharge Date: Jan 26, 2018 Admitting Diagnosis Septic shock (1) Septic shock ICD Code: A41.9 - Sepsis, unspecified organism; R65.21 - Severe sepsis with septic shock Status: Resolved (2) Probable infective endocarditis Status: Acute (3) Acute kidney failure ICD Code: N17.9 - Acute kidney failure, unspecified Status: Resolved (4) Hyponatremia ICD Code: E87.1 - Hypo-osmolality and hyponatremia (5) Lactic acidosis ICD Code: E87.2 - Acidosis (6) IVDU (intravenous drug user) ICD Code: F19.90 - Other psychoactive substance use, unspecified, uncomplicated Status: Acute Procedures none Brief History - From Admission Patient is a 47-year-old male with no significant past medical history who presented to the emergency department thinking that he is developing sepsis from a wound on the right forearm dorsum. Apparently he fell on a rock about a month ago at that time had wound infection currently there is a scab at the site of wound with some swelling around it but no fluctuation. Initially normotensive but developed hypotension in the ER, BP 70/31. After 3 L of normal saline boluses patient's blood pressure remained low at high 70 to low 80s systolic. Labs showed leukocytosis at 42.3 with 19% bands, Na130. BUN/ creatinine elevated at 33/1.65. Lactic acid is elevated at 3.2. Received vancomycin and aztreonam. Due to persistent hypotension after 3 L normal saline boluses, norepinephrine drip ordered and critical care medicine was consulted for admission due to septic shock. On my evaluation in the ED patient is hypotensive appears ill. On further interview he had admits to IV drug use with cocaine last injection was 3 days ago. He had been doing IV drugs on and off for approximately 10 years. Denies history of endocarditis. Bedside echo performed by me did not show any large vegetation, formal echo is pending at this time. Due to right upper quadrant tenderness a CT of the abdomen and pelvis is ordered we also will get a CT of the forearm to rule out any abscess less likely. CBC/BMP: 01/26/18 0712 01/25/18 0549 Significant Findings Laboratory Tests Test 01/24/18 23:00 01/25/18 05:49 01/25/18 21:23 01/26/18 07:12 Random Glucose 141 MG/DL (74-106) 117 MG/DL (74-106) Total Protein 6.2 GM/DL (6.4-8.2) Albumin 2.7 GM/DL (3.4-5.0) 2.9 GM/DL (3.4-5.0) Calcium Level 8.2 MG/DL (8.5-10.1) Alkaline Phosphatase 147 U/L (45-117) 162 U/L (45-117) Chloride Level 108 MEQ/L (98-107) Vancomycin Level Trough 1.7 MCG/ML (5.0-10.0) 12.9 MCG/ML (5.0-10.0) White Blood Count 13.3 TH/MM3 (4.0-11.0) 11.1 TH/MM3 (4.0-11.0) Neutrophils (%) (Auto) 84.4 % (16.0-70.0) Neutrophils # (Auto) 11.3 TH/MM3 (1.8-7.7) Imaging Last Impressions Chest X-Ray 01/26/18 0600 Signed Impressions: Service Date/Time: Friday, January 26, 2018 08:43 - CONCLUSION: There are no imaging findings to indicate pneumonia. No air space consolidation is present. There is a small volume of pleural fluid bilaterally. Talon Freire MD Abdomen/Pelvis CT 01/22/18 1458 Signed Impressions: Service Date/Time: Monday, January 22, 2018 16:59 - CONCLUSION: 1. There is trace free fluid in the pelvis from uncertain etiology. No free air is seen. 2. There is a small amount of air within the right rectus abdominis muscle inferiorly. However, no mass, fluid collection, or asymmetric size is appreciated in this area. Etiology is uncertain. Suggest correlation for any recent injections in this area. 3. Please refer to chest CT report for description of the supradiaphragmatic findings. Talon Freire MD Head CT 01/22/18 1221 Signed Impressions: Service Date/Time: Monday, January 22, 2018 13:17 - CONCLUSION: Normal examination. Talon Prasad MD Upper Extremity CT 01/22/18 0000 Signed Impressions: Service Date/Time: Monday, January 22, 2018 17:06 - CONCLUSION: 1. No acute osseous abnormality is identified. 2. Mild focal soft tissue swelling along the ulnar aspect of the midforearm. There is a linear density versus mineralization of soft tissues in the subcutaneous region. This is of uncertain etiology. Suggest correlation for any foreign body which could be in this area. Talon Freire MD Radius/Ulna X-Ray 01/22/18 0000 Signed Impressions: Service Date/Time: Monday, January 22, 2018 11:09 - CONCLUSION: No bony injury is seen. Talon Prasad MD Chest CT 01/22/18 0000 Signed Impressions: Service Date/Time: Monday, January 22, 2018 16:59 - CONCLUSION: 1. There are no imaging findings to indicate septic emboli. There is atelectasis at both lung bases. 2. There is mild smooth septal thickening in the upper lung zones bilaterally which can be seen as early changes of interstitial pulmonary edema. Talon Freire MD PE at Discharge GENERAL: NAD SKIN: Warm and dry.+ HSV rashes/ulcer HEAD: Normocephalic. EYES: No scleral icterus. No injection or drainage. NECK: Supple, trachea midline. No JVD or lymphadenopathy. CARDIOVASCULAR: Regular rate and rhythm without murmurs, gallops, or rubs. RESPIRATORY: Breath sounds equal bilaterally. No accessory muscle use. GASTROINTESTINAL: Abdomen soft, non-tender, nondistended. MUSCULOSKELETAL: No cyanosis, or edema. BACK: Nontender without obvious deformity. No CVA tenderness. 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 Lovenox/famotidine Pt Condition on Discharge: Good Discharge Disposition: Discharge Home Discharge Time: <= 30 minutes Discharge Instructions DIET: Follow Instructions for: As Tolerated, No Restrictions Activities you can perform: Regular-No Restrictions Follow up Referrals: PCP Follow-up - 1 Week New Medications: Acyclovir (Acyclovir) 800 Mg Tab 800 MG PO 5 TIMES A DAY for Infection, #35 TAB Continued Medications: Acetaminophen (Tylenol) 325 Mg Tab 650 MG PO Q6H PRN for PAIN SCALE 1 TO 4, #20 TAB 0 Refills Discontinued Medications: Sulfamethoxazole-Trimethoprim (Bactrim DS) 800-160 Mg Tab 1 TAB PO BID for Infection, #14 TAB 0 Refills Nathan Silverman MD Jan 26, 2018 12:38
[2018-01-28] MEDS ORDERED: PHARMACY ORDERED LAB ONE (05:45)
== END 2018-01-26 14:01 | disposition home or self-care (01) | DRG 871 ==
LOC: NEPD 09:57 → NEDA 15:19 → HIMW 17:20 → N07A 01-24 16:42
PROVIDERS: ADMIT Hospitalist; ATTEND Hospitalist
PROC: 02HV33Z Insertion of Infusion Device into Superior Vena Cava, Percutaneous Approach (ICD-10-PCS; principal; 2018-01-22)
DX: A41.9 Sepsis, unspecified organism (principal); R65.21 Severe sepsis with septic shock; N17.9 Acute kidney failure, unspecified; E87.2 Acidosis; J18.9 Pneumonia, unspecified organism; E86.0 Dehydration; E87.1 Hypo-osmolality and hyponatremia; F17.210 Nicotine dependence, cigarettes, uncomplicated; F14.10 Cocaine abuse, uncomplicated; B00.9 Herpesviral infection, unspecified; M79.631 Pain in right forearm; R03.0 Elevated blood-pressure reading, without diagnosis of hypertension; R10.11 Right upper quadrant pain
CPT/HCPCS: 36556; 70450; 71045; 71046; 71250; 73090; 73200; 74176; 76937; 80053; 80074; 80202; 83605; 83735; 84436; 84443; 85007; 85025; 85027; 85610; 85730; 87040; 87086; 87641; 93005; 93306; 96361; 96365; 96372; 96375; J1650; J1885; J2550; J3370; J7030; J7050